=== PATIENT | male | born 1945 | race Caucasian/White ===

== ENCOUNTER 2016-08-18 11:46 | Emergency (ER) | payer OTHER, MEDICARE ==
[~2016-08-18] VITALS: Ht 172.7 cm; Wt 112.0 kg
--- NOTE | 2016-08-18 13:49 | ED UPPER/LOWER EXTREMITY COMPL ---
History of Present Illness General Chief Complaint: Lower Extremity Problems Stated Complaint: R LEG NUMBNESS Source: patient Exam Limitations: no limitations Allergies Coded Allergies: NO KNOWN ALLERGIES (01/05/11) Triage Note: C/O R LEG SWELLING WITH NUMBNESS X A "FEW DAYS", WORSE THIS AM. C/O PAIN WITH WALKING. Triage Nurses Notes Reviewed? yes Onset: Gradual Duration: day(s): (2) Timing: no prior history Severity: moderate Pain/Injury Location: Right: Leg. Method of Injury: unknown Modifying Factors: Improves With: immobilization. Worsens With: movement. HPI: Patient is a 71-year-old male history of diabetes, hypertension, hyperlipidemia presenting to the emergency department with chief complaint of right lower extremity pain, swelling nothing going on for the past when she stood days. Patient reports that he recently had vascular studies done on his lower extremities and everything is okay. He also reports remote history of back issues and has been seeing his neurosurgeon, they did repeat back x-rays and everything looked okay. Patient denying any urinary incontinence or retention. He does report pain that radiates down the back of his right leg starting from his back. Sometimes the pain is so bad that he reports that his right leg feels like it's going to give out. Has been taking daily medications with little to no relief. He does take daily gabapentin. Denies any abdominal pain. No chest pain shortness of breath. No palpitations. He noticed the swelling this morning because his sock was causing an indentation in his right lower extremities are you decide to come in for evaluation. Denies shortness of breath. No palpitations. Denies trauma. (NETO LEDESMA,TAYLA) Vital Signs & Intake/Output Vital Signs & Intake/Output Vital Signs Date Time Temp Pulse Resp B/P B/P Pulse O2 O2 Flow FiO2 Mean Ox Delivery Rate 08/18 1602 97.6 63 18 159/72 93 Room Air 08/18 1206 96.9 53 18 146/71 100 Room Air Reconcile Medications Alprazolam 0.5 MG TABLET 1 TAB PO DAILY ANXIETY (Reported) Carvedilol 3.125 MG TABLET 1 TAB PO BID HEART (Reported) Celecoxib 200 MG CAPSULE 1 CAP PO DAILY PAIN (Reported) Diltiazem HCl (Diltiazem ER) 300 MG CAPSULE.ER 1 TAB PO DAILY HEART (Reported ) Gabapentin 400 MG CAPSULE 1 CAP PO TID UNKNOWN (Reported) Indapamide 2.5 MG TABLET 1 TAB PO DAILY UNKNOWN (Reported) Losartan Potassium 100 MG TABLET 1 TAB PO DAILY HEART (Reported) Meloxicam (Mobic) 15 MG TABLET 1 TAB PO DAILY PRN pain Metformin HCl 500 MG TABLET 1 TAB PO BID DM (Reported) Omeprazole 20 MG CAPSULE.DR 1 CAP PO DAILY GI (Reported) Rosuvastatin Calcium (Crestor) 20 MG TABLET 1 TAB PO DAILY CHOLESTEROL ( Reported) (ALESSANDRO LAMAS,JASE Jacobo) Past History Travel History Traveled to [place] past 21 day No Medical History Any Pertinent Medical History? see below for history Cardiovascular: HTN HIGH CHOLESTEROL CARDIAC CATH Musculoskeletal: ARTHRITIS Psychiatric: anxiety, depression Endocrine: diabetes Surgical History Surgical History: non-contributory Psychosocial History What is your primary language Lithuanian Tobacco Use: Quit >30 days ago ETOH Use: occasional use Family History Hx Contributory? No (TAYLA HARKINS) Review of Systems Review of Systems Constitutional: Reports: no symptoms. Comments Review of systems: See HPI, All other systems negative. Constitutional, no chills fever or weight loss HEENT: No visual changes no sore throat no congestion Cardiovascular: No chest pain ,palpitation , orthopnea Skin, no jaundice no rashes Respiratory: No dyspnea cough sputum or hemoptysis GI: No nausea no vomiting : No dysuria No hematuria Muscle skeletal:no neck pain, Neurologic: No numbness no confusion no [place] Psych: No stress anxiety or depression,. Heme/endocrine: No bruising no bleeding no polyuria or polydipsia Immunology: No splenectomy or history of AIDS (TAYLA HARKINS) Physical Exam Physical Exam General Appearance: well developed/nourished, no apparent distress, alert, awake , obese Comments: Well-developed well-nourished person in no acute distress HEENT: Pupils equally round and reactive to light and accommodation. Nose is atraumatic. Neck: Normal inspection Back: Tender to palpation in the lumbar spinal region bilaterally. No bony tenderness. Negative modified straight leg raise bilaterally. Cardiovascular: Regular rate and rhythms no murmurs rubs or gallops, normal JVP Respiratory: Chest nontender. No respiratory distress.breath sounds clear to auscultation bilaterally Abdomen: Soft, obese, nontender nondistended, no appreciable organomegaly. Normal bowel sounds. No ascites, no rebound or guarding. Extremity: 2+ pitting edema noted in the right lower extremity around the right ankle, mild calf tenderness to palpation on the right, normal and equal pulses. Full range of motion of lower extremities without difficulty or pain. No erythema appreciated over the lower extremities bilaterally. Neuro: Alert oriented x3, motor sensory normal Skin: No appreciable rash on exposed skin, skin is warm and dry. Psych: Mood and affect is normal, memory and judgment is normal. (NETO LEDESMA,TAYLA) Progress Differential Diagnosis: CHF, contusion, dislocation, DVT, fracture, sprain, tendon injury, venous insufficiency Plan of Care: Orders Procedure Date/time Status US-UNILATERAL VENOUS DOPPLER 08/18 1348 Active Diagnostic Imaging: Viewed by Me: Ultrasound. Discussed w/RAD: Ultrasound. Radiology Impression: PATIENT: CHANTEL BALDERAS PRESENT AGE: 71 PATIENT ACCOUNT NO: [id number] : 45 LOCATION: [facility] ORDERING PHYSICIAN: TAYLA LEDESMA SERVICE DATE: 08/18/16 EXAM TYPE: US - US-UNILATERAL VENOUS DOPPLER EXAMINATION: US TRIPLEX LOWER EXTREMITY, RIGHT CLINICAL INFORMATION: Right lower extremity pain, swelling COMPARISON: None TECHNIQUE: Color-flow triplex imaging with spectral analysis and compression Doppler were performed on the lower extremity. FINDINGS: Respiratory variation, normal compression and augmented flow are noted throughout the left lower extremity. The visualized common femoral vein, superficial femoral vein, profunda femoral vein, popliteal vein and midcalf peroneal and posterior tibial venous segments show no evidence of deep venous thrombosis. There is a 3.5 x 0.7 x 1.3 cm right popliteal Gasca's cyst. There is a right knee joint effusion. IMPRESSION: Normal triplex scan without evidence of deep venous thrombosis involving the lower extremity. DICTATED BY: LUIS MIGUEL EL MD DATE/TIME DICTATED:08/18/161445 OPERATIONS TRAINER:[place] DATE/TIME TRANSCRIBED:1445 Comments: On arrival patient declined pain medication. Patient does have unilateral leg swelling, lungs clear to auscultation vitals are stable. Not complaining of any shortness of breath or chest pain. Patient will go for venous Doppler to rule out DVT. Patient informed of son results. Edema likely secondary to venous insufficiency. Educated on elevating her lower extremity. We will switch patient's anti-inflammatory to see if that has any effect. Back pain is likely exacerbation of chronic back pain. No new injuries. No bony tenderness to indicate need for imaging. Neurologically intact. Patient will follow-up with PCP in the next several days or return for worsening symptoms. Discussed with Dr. Quintanilla and agrees with plan. (TAYLA HARKINS) Departure Departure Time of Disposition: 1531 Disposition: HOME OR SELF CARE Condition: Stable Clinical Impression Primary Impression: Leg edema Secondary Impressions: Back pain Qualifiers: Back pain location: low back pain Chronicity: unspecified Back pain laterality: bilateral Sciatica presence: with sciatica Sciatica laterality: sciatica of right side Qualified Code: M54.41 - Lumbago with sciatica, right side Referrals: CINDY LAMAS,MARIO Fajardo (PCP/Family) Additional Instructions: Follow-up with your primary care physician call to make an appointment. Elevate the lower extremities is much as possible as this will help with swelling. You can also ice affected area. Take anti-inflammatory as directed. Return for worsening symptoms or concerns. Departure Forms: Customer Survey General Discharge Information Prescriptions: Current Visit Scripts Meloxicam (Mobic) 1 TAB PO DAILY PRN pain #20 TAB (TAYLA HARKINS) PA/GROUND CREW SUPERVISOR Co-Sign Statement Statement: ED Attending supervision documentation- [X] I saw and evaluated the patient. I have also reviewed all the pertinent lab results and diagnostic results. I agree with the findings and the plan of care as documented in the PA's/GROUND CREW SUPERVISOR's documentation. [] I have reviewed the ED Record and agree with the PA's/GROUND CREW SUPERVISOR's documentation. [] Additions or exceptions (if any) to the PAs/GROUND CREW SUPERVISOR's note and plan are summarized below: [] (ALESSANDRO LAMAS,JASE Jacobo)
--- NOTE | 2016-08-18 14:50 | ULTRASOUND REPORT ---
EXAMINATION: US TRIPLEX LOWER EXTREMITY, RIGHT CLINICAL INFORMATION: Right lower extremity pain, swelling COMPARISON: None TECHNIQUE: Color-flow triplex imaging with spectral analysis and compression Doppler were performed on the lower extremity. FINDINGS: Respiratory variation, normal compression and augmented flow are noted throughout the left lower extremity. The visualized common femoral vein, superficial femoral vein, profunda femoral vein, popliteal vein and midcalf peroneal and posterior tibial venous segments show no evidence of deep venous thrombosis. There is a 3.5 x 0.7 x 1.3 cm right popliteal Gasca's cyst. There is a right knee joint effusion. IMPRESSION: Normal triplex scan without evidence of deep venous thrombosis involving the lower extremity.
[2016-08-18] MEDS ORDERED: GABAPENTIN400 M2 PO (14:54)
[2016-08-18] MEDS ORDERED: ALPRAZOLAM0.5 M4 PO (14:54)
[2016-08-18] MEDS ORDERED: INDAPAMIDE2.5 M1 PO (14:55)
[2016-08-18] MEDS ORDERED: DILTIAZEM ER300 M1 PO (14:55)
[2016-08-18] MEDS ORDERED: METFORMIN HCL500 M3 PO (14:55)
[2016-08-18] MEDS ORDERED: CARVEDILOL3.125 M1 PO (14:56)
[2016-08-18] MEDS ORDERED: LOSARTAN POTAS100 M1 PO (14:56)
[2016-08-18] MEDS ORDERED: CRESTOR20 M2 PO (14:56)
[2016-08-18] MEDS ORDERED: OMEPRAZOLE20 M2 PO (14:56)
[2016-08-18] MEDS ORDERED: CELECOXIB200 M1 PO (14:57)
[2016-08-18] MEDS ORDERED: MOBIC15 M1 PO (15:40)
[2016-08-18 16:02] VITALS: BP 159/72
== END 2016-08-18 16:19 ==
LOC: ERH 11:46
DX: R60.0 Localized edema (principal); M54.5 Low back pain